=== PATIENT | female | born 1950 | race African-American/Black ===

== ENCOUNTER 2021-12-15 05:45 | Day surgery (SDC) | payer OTHER ==
[2021-12-11 10:10] LABS: Absolute Lymphocytes (CBC) 2.7 K/uL (0.7-4.9); Hematocrit 36.2 % (36.0-45.0); MCV 87.5 fL (80-100); RBC Red Blood Cell Count 4.14 M/uL (3.86-4.86)
[2021-12-11 10:18] LABS: SARS-CoV-2 Antigen Rapid Res Negative (Negative)
[2021-12-11 10:49] LABS: White Blood Cell Scan OK (OK)
[2021-12-11 10:50] LABS: Blood Morphology Comment NOT SEEN (NOT SEEN); Platelet Estimate DECR
--- NOTE | 2021-12-12 10:40 | EKG ---
Test Date: 2021-12-11 Test Time: 09:40:05 Physician Scientist: [id number] MEASUREMENT RESULTS: Intervals: Rate: 47 TN: 130 QRSD: 70 QT: 456 QTc: 403 [place]: P: 67 TN: 130 QRS: -6 T: -4 INTERPRETIVE STATEMENTS: Marked sinus bradycardia Possible Left atrial enlargement Anterior infarct, age undetermined Abnormal ECG Compared to ECG 03/23/2020 14:21:57 No significant changes Electronically Signed On 12-12-21 10:36:22 CDT by Jonas Weber
[2021-12-15] MEDS ORDERED: Ringers Lactate 1,000 ML IV ONE (06:05)
[2021-12-15] MEDS ORDERED: FENTANYL CITR 100 MCG/2 ML ONE (07:01)
[2021-12-15] MEDS ORDERED: ONDANSETRON 4 MG/2 ML VIAL ONE (07:02)
[2021-12-15] MEDS ORDERED: MIDAZOLAM HCL 2 MG/2 ML INJ ONE (07:02)
[2021-12-15] MEDS ORDERED: LIDOCAINE 2% MPF 5 ML VIAL ONE (07:02)
[2021-12-15] MEDS ORDERED: propofoL 200 MG/20 ML VIAL IV ONE (07:02)
[2021-12-15] MEDS ORDERED: EPHEDRINE SULF 50 MG/ML VIAL ONE (07:25)
[2021-12-15] MEDS: HYDROMORPHONE HCL 1 MG/ML INJ ONE ×4 (08:09→08:41)
[2021-12-15] MEDS ORDERED: KETOROLAC 30 MG/ML INJ ONE (08:40)
[2021-12-15 08:44] VITALS: O2SAT 100
[2021-12-15] MEDS ORDERED: HYDROCODONE/APAP 7.5/325 MG TAB ONE (09:15)
[2021-12-15 12:37] VITALS: BP 143/61; TEMP 96.9
--- NOTE | 2021-12-15 19:09 | OP ---
Date of Procedure: 12/15/2021 Surgeon: Kunal Mistry MD Preoperative Diagnosis: Right fourth trigger digit. Postoperative Diagnosis: Right fourth trigger digit. Procedures: Right fourth trigger digit release. Estimated Blood Loss: Less than 3 cc. Complications: None. Specimen: No pathology specimen sent. Indications For Operation: Ms. Thompson is a patient who came to my office with complaints of pain, sti ffness, and triggering of her right fourth digit. She was able to demonstrate active triggering and did have pain at the A1 anjana with a nodule being felt. She is neurovascularly intact and denies an y numbness or tingling. Risks, benefits, and alternatives of different methods of treating this incl uding injection or surgery or observation were discussed. She states she understands things as prese nted and opts for release. All of her questions were answered. Description Of Procedure: The patient was taken to the operating in the room and placed in supine po sition. General anesthesia was obtained by staff. Following this, a well-padded tourniquet placed o n superior right arm. Right upper extremity was then prepped and draped in usual sterile fashion pro cedure. After this arm was then elevated, but not exsanguinated. Tourniquet was raised. The hand w as appropriately positioned. A position which was just distal to the distal palmar crease was marked out in line with the fourth digit. Transverse incision was made very carefully through skin only. Meticulous hemostasis being maintained using bipolar electrocautery. This was then spread both horiz ontally and vertically using hemostats. This allowed for visualization of the tendon as well as the A1 tendon sheath. This was then divided in a proximal to distal direction and distal to proximal dir ection until no constricting bands. No time on any sharp instruments placed outside the operative fi eld. Following this, the finger was brought through range of motion, found to have no abnormal tendo n motion did appear to be released at the A1 anjana. The skin was then closed using interrupted nylo n sutures. The patient was placed in a well-padded sterile dressing, awakened, taken to recovery in good condition. No complications. SE/MODL Voice ID: [id number] Report ID: [id number]
== END 2021-12-15 09:30 | disposition home or self-care (01) ==
LOC: OR 05:45
PROVIDERS: ATTEND Orthopaedic Surgery
PROC: 0LN70ZZ Release Right Hand Tendon, Open Approach (ICD-10-PCS; principal; 2021-12-15 07:00)
DX: M65.341 Trigger finger, right ring finger (principal); M25.541 Pain in joints of right hand; M25.542 Pain in joints of left hand; M65.342 Trigger finger, left ring finger; Z20.822 Contact with and (suspected) exposure to COVID-19
CPT/HCPCS: 26055; 93005; 85025; 80048; 36415; 87811; J2704; J2250; J3010; J1170 ×2; J7120; J2405